=== PATIENT | female | born 2000 | race Caucasian/White ===

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

== ENCOUNTER 2022-01-11 07:59 | Emergency (ER) | payer BC, OTHER ==
--- NOTE | 2022-01-11 08:55 | ERPHSYRPT ---
- History of Present Illness Historian: patient Exam Limitations: no limitations Patient Subjective Stated Complaint: Pt states that she went to work this morning and suddenly had a sharp pain in lower abdomen, started to vomit, turned pale. Pt states she has had several UTI's since the start of her . Triage Nursing Assessment: Pt a&ox4, heart rate is 145, no contractions found at this time. Pt vitals are wnl. Abdomen is non tender, with good movement. Physician History: 21 yo wf 25wks presents w supra-pubic pain which is sharp and rated 4/10 at present. She had some nausea w vomiting x2 this AM. Diarrhe a/fever/dysuria/hematuria/vag bleeding/vag discharge all denied. Good heart tones/no contractions per Ob monitoring. Pt recently treated for UTI. Timing/Duration: other (1hr) Activities at Onset: rest Quality: sharpness Abdominal Pain Onset Location: suprapubic Pain Radiation: no radiation Severity of Pain-Max: mild Severity of Pain-Current: mild Modifying Factors: Improves With: nothing Associated Symptoms: denies symptoms, nausea, vomiting Previous symptoms: no prior history Allergies/Adverse Reactions: No Known Drug Allergies Allergy (Verified 10/25/21 15:16) Home Medications: Albuterol 2.5 mg/3 ml Neb [Proventil 2.5 mg/3 ml Neb] 3 ml IN UD 07/21/12 [History] Vits96/Iron Fum/Folic [ Tablet] 1 tab PO DAILY 10/25/21 [History] Hx Tetanus, Diphtheria Vaccination/Date Given: Yes Hx Influenza Vaccination/Date Given: Yes Hx Pneumococcal Vaccination/Date Given: No Travel Risk - International Travel Have you traveled outside of the country in past 3 weeks: No - Coronavirus Screening Are you exhibiting any of the following symptoms?: No Close contact with a COVID-19 positive Pt in past 14-21 Days: Yes - Vaccine Status Have you recieved a Covid-19 vaccination: No - Review of Systems Constitutional: No Symptoms Eyes: No Symptoms Ears, Nose, & Throat: No Symptoms Respiratory: No Symptoms Cardiac: No Symptoms Abdominal/Gastrointestinal: No Symptoms, Abdominal Pain, Nausea, Vomiting Genitourinary Symptoms: No Symptoms, , No Vaginal Bleeding, No Vaginal Discharge Musculoskeletal: No Symptoms Skin: No Symptoms Neurological: No Symptoms Psychological: No Symptoms Endocrine: No Symptoms Hematologic/Lymphatic: No Symptoms Immunological/Allergic: No Symptoms - Past Medical History Pertinent Past Medical History: Yes Neurological History: No Pertinent History ENT History: No Pertinent History Cardiac History: No Pertinent History Respiratory History: Asthma Endocrine Medical History: No Pertinent History Musculoskeletal History: No Pertinent History GI Medical History: No Pertinent History History: No Pertinent History Psycho-Social History: No Pertinent History Female Reproductive Disorders: No Pertinent History - Past Surgical History Past Surgical History: No Neuro Surgical History: No Pertinent History Cardiac: No Pertinent History Respiratory: No Pertinent History Gastrointestinal: No Pertinent History Genitourinary: No Pertinent History Musculoskeletal: No Pertinent History Female Surgical History: No Pertinent History Other Surgical History: Quad bypass - Social History Smoking Status: Former smoker Exposure to second hand smoke: Yes Drug Use: none Patient Lives Alone: No Significant Family History: no pertinent family hx - Female History Hx Now: Yes Expected Date of Delivery: 04/24/22 Gestational Age: 25+2 - Nursing Vital Signs Nursing Vital Signs: Initial Vital Signs Temperature 98.2 F 01/11/22 07:59 Pulse Rate 113 H 01/11/22 07:59 Respiratory Rate 20 01/11/22 07:59 Blood Pressure 148/74 01/11/22 07:59 O2 Sat by Pulse Oximetry 97 01/11/22 07:59 Pain Scale Pain Intensity 1 Tachy/hypertyensive - Physical Exam General Appearance: no apparent distress Eye Exam: PERRL/EOMI, eyes nml inspection Ears, Nose, Throat Exam: normal ENT inspection, TMs normal, pharynx normal, moist mucous membranes Neck Exam: normal inspection, non-tender, supple, full range of motion, No meningismus, No mass, No Brudzinski, No Kernig's Respiratory Exam: normal breath sounds, lungs clear, airway intact Cardiovascular Exam: tachycardia, capillary refill <2 sec Gastrointestinal/Abdomen Exam: normal bowel sounds, other (/Good BS/NTTP), No tenderness Back Exam: normal inspection, normal range of motion, No CVA tenderness, No vertebral tenderness, No rash Extremity Exam: normal inspection, normal range of motion Neurologic Exam: alert, oriented x 3, cooperative, 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 as tested, normal mood/affect, nml cerebellar function, nml station & gait, sensation nml Skin Exam: normal color, warm, dry, No rash Lymphatic Exam: No adenopathy SpO2 Interpretation: normal SpO2: 97 O2 Delivery: Room Air - Course Nursing assessment & vital signs reviewed: Yes Ordered Tests: Active Orders 24 hr Category Date Time Status CULTURE,URINE Stat Lab 01/11/22 09:58 Received UA W/RFX CULTURE Stat Lab 01/11/22 09:58 Completed Lab/Rad Data: Laboratory Results 01/11/22 Range/Units 09:58 Urinalys Dipstick Clnc MAIN LAB Urine Color YELLOW (YELLOW) Urine Appearance CLEAR (CLEAR) Urine pH 5.5 (5-6) Ur Specific [place] 1.015 (1.005-1.025) POC Urine Protein Conf NEGATIVE (Negative) Urine Ketones NEGATIVE (NEGATIVE) Urine Nitrite NEGATIVE (NEGATIVE) Urine Bilirubin NEGATIVE (NEGATIVE) Urine Urobilinogen 0.2 (0-1) mg/dL Urine Leukocytes MODERATE (NEGATIVE) Urine WBC (Auto) 26-50 (0-5) /HPF Urine RBC (Auto) 6-10 (0-2) /HPF U Epithel Cells (Auto) RARE (FEW) /HPF Urine Bacteria (Auto) RARE (NEGATIVE) /HPF Urine RBC TRACE-INTACT (0-5) Felipe/ul Unidentified Crystals 25-50 (NEGATIVE) /HPF Urine Mucus (Auto) SLIGHT (NEGATIVE) /HPF Urine Yeast (Budding) Rare (NEGATIVE) /HPF Ur Culture Indicated? YES Urine Glucose NEGATIVE (NEGATIVE) mg/dL - Progress Progress: improved Progress Note: 01/11/22 11:35 Pt's pain abated wo treatment Spoke w Dr. Smith, wants to start Macrobid at this time and follow up as an outpt. Since pain is sharp, does not want US at this time No contractions/Good heart rate per Ob staff Counseled pt/family regarding: lab results, diagnosis, need for follow-up - Departure Departure Disposition: Home Clinical Impression: UTI (urinary tract infection) Condition: Stable Critical Care Time: No Referrals: TERESA GARCIA NP [Primary Care Provider] - Follow up/PCP as directed Instructions: Urinary Tract Infections in Additional Instructions: Start Macrobid twice a day Follow up with Dr. Smith If pain returns, becomes cramping, or vaginal bleeding starts go to [facility] or [facility] Prescriptions: Nitrofurantoin Monohyd/M-Cryst [Macrobid 100 mg Capsule] 100 mg PO BID #14
[2022-01-11 10:41] LABS: Bacteria RARE /HPF (NEGATIVE); Crystals Unidentified 25-50 /HPF (NEGATIVE); Epithelial Cells RARE /HPF (FEW); Mucus SLIGHT /HPF (NEGATIVE); WBC 26-50 /HPF (0-5)
[2022-01-11 10:49] LABS: Budding Yeast Rare /HPF (NEGATIVE)
[2022-01-11 10:50] LABS: Appearance CLEAR (CLEAR); Bilirubin NEGATIVE (NEGATIVE); Glucose NEGATIVE (NEGATIVE); Ketones NEGATIVE (NEGATIVE); Nitrite NEGATIVE (NEGATIVE); Ph 5.5 (5-6); Protein,Urine Dip NEGATIVE (Negative); RBC TRACE-INTACT Ery/ul (0-5); Specific Gravity 1.015 (1.005-1.025); Urine Cultured Indicated? YES; Urobilinogen 0.2 mg/dL (0-1)
[2022-01-11 11:18] VITALS: BP 95/42; PULSE 67
[2022-01-11 11:40] VITALS: O2SAT 97
[2022-01-11 13:26] LABS: Dipstick done @ ? MAIN LAB
== END 2022-01-11 11:55 | disposition home or self-care (01) ==
LOC: ED 07:59
DX: O23.42 Unspecified infection of urinary tract in pregnancy, second trimester (principal); N39.0 Urinary tract infection, site not specified; Z3A.25 25 weeks gestation of pregnancy; R10.2 Pelvic and perineal pain; R11.2 Nausea with vomiting, unspecified; Z28.310 Unvaccinated for COVID-19
CPT/HCPCS: 81015; 87086; 99283

== ENCOUNTER 2022-02-23 09:30 | Emergency (ER) | payer BC, OTHER ==
--- NOTE | 2022-02-23 09:32 | ERPHSYRPT ---
- History of Present Illness Time Seen by Provider: 02/23/22 09:32 Source: patient Exam Limitations: no limitations Physician History: This is a 21-year-old white female patient of nurse practitioner Cholo as well as csr Dr. Smith who is by ultrasound that was performed on 02/22/2022 3 weeks and 4 days . She presents with sudden onset of anxiety and panic attack including tearfulness that she could not control. She became stressed at work and then the symptoms followed. She does not have chest pain and she is not short of breath now but during the crying episode she felt a little short of breath. She presents with normal vital signs. She has no abdominal pain. She has had no vomiting or diarrhea. She is not nauseated. She has not been co ughing. She has no known exposures to individuals known to have viral illnesses. She has not had any vaginal bleeding or abnormal vaginal discharge. Timing/Duration: today Severity: moderate (When it began but now it has nearly completely resolved.) Associated Symptoms: denies symptoms Allergies/Adverse Reactions: No Known Drug Allergies Allergy (Verified 10/25/21 15:16) Home Medications: Albuterol 2.5 mg/3 ml Neb [Proventil 2.5 mg/3 ml Neb] 3 ml IN UD 07/21/12 [History] Vits96/Iron Fum/Folic [ Tablet] 1 tab PO DAILY 10/25/21 [History] Hx Tetanus, Diphtheria Vaccination/Date Given: Yes Hx Influenza Vaccination/Date Given: Yes Hx Pneumococcal Vaccination/Date Given: No Travel Risk - International Travel Have you traveled outside of the country in past 3 weeks: No - Coronavirus Screening Are you exhibiting any of the following symptoms?: No Close contact with a COVID-19 positive Pt in past 14-21 Days: No - Vaccine Status Have you recieved a Covid-19 vaccination: No - Review of Systems Constitutional: No Symptoms Eyes: No Symptoms Ears, Nose, & Throat: No Symptoms Respiratory: No Symptoms Cardiac: No Symptoms Abdominal/Gastrointestinal: No Symptoms Genitourinary Symptoms: No Symptoms Musculoskeletal: No Symptoms Skin: No Symptoms Neurological: No Symptoms Psychological: Anxiety Endocrine: No Symptoms Hematologic/Lymphatic: No Symptoms Immunological/Allergic: No Symptoms All Other Systems: Reviewed and Negative - Past Medical History Pertinent Past Medical History: Yes Neurological History: No Pertinent History ENT History: No Pertinent History Cardiac History: No Pertinent History Respiratory History: Asthma Endocrine Medical History: No Pertinent History Musculoskeletal History: No Pertinent History GI Medical History: No Pertinent History History: No Pertinent History Psycho-Social History: No Pertinent History Female Reproductive Disorders: No Pertinent History - Past Surgical History Past Surgical History: No Neuro Surgical History: No Pertinent History Cardiac: No Pertinent History Respiratory: No Pertinent History Gastrointestinal: No Pertinent History Genitourinary: No Pertinent History Musculoskeletal: No Pertinent History Female Surgical History: No Pertinent History Other Surgical History: Quad bypass - Social History Smoking Status: Former smoker Exposure to second hand smoke: Yes Drug Use: none Patient Lives Alone: No Significant Family History: no pertinent family hx - Nursing Vital Signs Nursing Vital Signs: Initial Vital Signs Temperature 98.2 F 02/23/22 09:32 Pulse Rate 98 H 02/23/22 09:32 Respiratory Rate 26 H 02/23/22 09:32 Blood Pressure 136/54 02/23/22 09:32 O2 Sat by Pulse Oximetry 98 02/23/22 09:32 Pain Scale Pain Intensity 3 - Physical Exam General Appearance: no apparent distress, alert, anxiety Eye Exam: PERRL/EOMI (Mild), eyes nml inspection Ears, Nose, Throat Exam: normal ENT inspection, moist mucous membranes Neck Exam: normal inspection, non-tender, supple, full range of motion Respiratory Exam: normal breath sounds, lungs clear, airway intact, No chest tenderness, No respiratory distress Cardiovascular Exam: regular rate/rhythm, normal heart sounds, normal peripheral pulses Gastrointestinal/Abdomen Exam: soft, normal bowel sounds, other ( abdomen), No tenderness Pelvic Exam: not done Rectal Exam: not done Back Exam: normal inspection, normal range of motion, No CVA tenderness, No vertebral tenderness Extremity Exam: normal inspection, normal range of motion, pelvis stable Neurologic Exam: alert, oriented x 3, cooperative, calender tender II-XII nml as tested, normal mood/affect, nml cerebellar function, nml station & gait, sensation nml Skin Exam: normal color, warm, dry Lymphatic Exam: No adenopathy SpO2 Interpretation: normal O2 Delivery: Room Air - Course Nursing assessment & vital signs reviewed: Yes EKG Interpreted by Me: RATE (89), Sinus Rhythm, NORMAL AXIS, NORMAL INTERVALS, NORMAL QRS, NORMAL ST-T, Other (No acute ischemic changes on today's EKG.) Ordered Tests: Active Orders 24 hr Category Date Time Status EKG-ER Only STAT Care 02/23/22 09:40 Active BMP Stat Lab 02/23/22 10:03 Completed CBC W DIFF Stat Lab 02/23/22 10:10 Completed CULTURE,URINE Stat Lab 02/23/22 10:03 Received UA W/RFX CULTURE Stat Lab 02/23/22 10:03 Completed Lab/Rad Data: Laboratory Result Diagrams 02/23/22 10:10 02/23/22 10:03 Laboratory Results 02/23/22 02/23/22 02/23/22 Range/Units 10:10 10:03 10:03 WBC 11.1 H (4.0-10.5) x10^3/uL RBC 4.42 (4.1-5.4) x10^6/uL Hgb 10.0 L (12.0-16.0) g/dL Hct 31.9 L (35-47) % MCV 72.2 L (78-100) fL MCH 22.6 L (26-32) pg MCHC 31.3 L (32-36) g/dL RDW 16.2 H (11.5-14.0) % Plt Count 249 (150-450) x10^3/uL MPV 10.2 (7.5-11.0) fL Gran % 78.2 H (36.0-66.0) % Immature Gran % (Auto) 0.6 H (0.00-0.4) % Nucleat RBC Rel Count 0.0 (0.00-0.1) % Eos # (Auto) 0.30 (0-0.5) x10^3/uL Immature Gran # (Auto) 0.07 H (0.00-0.03) x10^3u/L Absolute Lymphs (auto) 1.44 (1.0-4.6) x10^3/uL Absolute Monos (auto) 0.55 (0.0-1.3) x10^3/uL Absolute Nucleated RBC 0.00 (0.00-0.01) x10^3u/L Lymphocytes % 13.0 L (24.0-44.0) % Monocytes % 5.0 (0.0-12.0) % Eosinophils % 2.7 (0.00-5.0) % Basophils % 0.5 (0.0-0.4) % Absolute Granulocytes 8.68 H (1.4-6.9) x10^3/uL Basophils # 0.05 (0-0.4) x10^3/uL Sodium 135 L (137-145) mmol/L Potassium 3.6 (3.5-5.1) mmol/L Chloride 110 H (98-107) mmol/L Carbon Dioxide 17 L (22-30) mmol/L Anion Gap 11.7 (5-15) MEQ/L BUN 5 L (7-17) mg/dL Creatinine 0.56 (0.52-1.04) mg/dL Estimated GFR > 60.0 ML/MIN Glucose 105 (74-106) mg/dL Calcium 8.8 (8.4-10.2) mg/dL Urinalys Dipstick Clnc MAIN LAB Urine Color DARK YELLOW (YELLOW) Urine Appearance SLIGHTLY CLOUDY (CLEAR) Urine pH 6.5 (5-6) Ur Specific [place] >=1.030 (1.005-1.025) POC Urine Protein Conf 30 (Negative) Urine Ketones TRACE (NEGATIVE) Urine Nitrite NEGATIVE (NEGATIVE) Urine Bilirubin NEGATIVE (NEGATIVE) Urine Urobilinogen 0.2 (0-1) mg/dL Urine Leukocytes SMALL (NEGATIVE) Urine WBC (Auto) 51-100 (0-5) /HPF Urine RBC (Auto) 6-10 (0-2) /HPF U Epithel Cells (Auto) FEW (FEW) /HPF Urine Bacteria (Auto) NONE (NEGATIVE) /HPF Urine RBC NEGATIVE (0-5) Felipe/ul Calcium Oxalate Crystal 11-25 (NEGATIVE) /HPF Urine Mucus (Auto) MODERATE (NEGATIVE) /HPF Ur Culture Indicated? YES Urine Glucose NEGATIVE (NEGATIVE) mg/dL - Progress Progress: improved, re-examined Progress Note: 02/23/22 11:12 Medical decision making: This patient has a urinary tract infection. She also had a panic attack. I spoke with Dr. Smith, the patient's csr. The pl an is to write for Macrobid antibiotic for her to treat her urinary tract infection. In addition I will write for BuSpar 10 mg orally each day. She will follow-up with Dr. Smith in his office. She will call today to make arrangements for follow-up appointment Discussed with : Candelaria Counseled pt/family regarding: lab results, diagnosis, need for follow-up - Departure Departure Disposition: Home Clinical Impression: UTI (urinary tract infection) during , Panic attack as reaction to stress Condition: Stable Critical Care Time: No Referrals: TERESA GARCIA CLINICAL PROJECT MANAGER [Primary Care Provider] - Follow up/PCP as directed Additional Instructions: Drink plenty of fluids. Take your medication as prescribed. Call your csr's office today to make arranges for follow-up appointment for further evaluation and management. Prescriptions: Buspirone HCl 5 mg [Buspar 5 mg] 10 mg PO DAILY #7 tablet Nitrofurantoin Macro 100 mg [Macrobid 100MG Capsule] 100 mg PO BID #10 cap
[2022-02-23 10:20] LABS: Absolute Neutrophil Ct (ANC) 8.68 x10^3/uL (1.4-6.9); Basophil (Absolute #) 0.05 x10^3/uL (0-0.4); Eosinophil % 2.7 % (0.00-5.0); Hematocrit 31.9 % (35-47); Lymphocyte (Absolute #) 1.44 x10^3/uL (1.0-4.6); Mean Cell Volume 72.2 fL (78-100); Mean Corpuscular Hemoglobin 22.6 pg (26-32); Mean Corpuscular Hgb Concent. 31.3 g/dL (32-36); Mean Platelet Volume 10.2 fL (7.5-11.0); Monocyte (Absolute #) 0.55 x10^3/uL (0.0-1.3); Neutrophil % 78.2 % (36.0-66.0); Platelet Count 249 x10^3/uL (150-450); Red Blood Count 4.42 x10^6/uL (4.1-5.4); Red Cell Distribution Width 16.2 % (11.5-14.0); White Blood Count 11.1 x10^3/uL (4.0-10.5)
[2022-02-23 10:25] LABS: ANION GAP 11.7 MEQ/L (5-15); BLOOD UREA NITROGEN 5 mg/dL (7-17); CHLORIDE 110 mmol/L (98-107); Calcium 8.8 mg/dL (8.4-10.2); Carbon Dioxide 17 mmol/L (22-30); Creatinine 1 0.56 mg/dL (0.52-1.04); EST GLOMERULAR FILTRATION RATE > 60.0 ML/MIN; Glucose 105 mg/dL (74-106); Potassium 3.6 mmol/L (3.5-5.1); SODIUM 135 mmol/L (137-145)
[2022-02-23 10:31] LABS: Epithelial Cells FEW /HPF (FEW); Mucus MODERATE /HPF (NEGATIVE); WBC 51-100 /HPF (0-5)
[2022-02-23 10:40] LABS: Appearance SLIGHTLY CLOUDY (CLEAR); Bilirubin NEGATIVE (NEGATIVE); Dipstick done @ ? MAIN LAB; Glucose NEGATIVE (NEGATIVE); Ketones TRACE (NEGATIVE); Nitrite NEGATIVE (NEGATIVE); Ph 6.5 (5-6); Protein,Urine Dip 30 (Negative); RBC NEGATIVE Ery/ul (0-5); Specific Gravity >=1.030 (1.005-1.025); Urobilinogen 0.2 mg/dL (0-1)
[2022-02-23 10:41] LABS: Urine Cultured Indicated? YES
[2022-02-23 11:20] VITALS: BP 115/47; PULSE 83; O2SAT 98
== END 2022-02-23 11:28 | disposition home or self-care (01) ==
LOC: ED 09:30
DX: O23.41 Unspecified infection of urinary tract in pregnancy, first trimester (principal); N39.0 Urinary tract infection, site not specified; O99.341 Other mental disorders complicating pregnancy, first trimester; F43.0 Acute stress reaction; Z3A.01 Less than 8 weeks gestation of pregnancy
CPT/HCPCS: 36415; 80048; 81015; 85025; 87086; 93005; 99283

== ENCOUNTER 2022-03-04 11:44 | Observation (INO) | payer BC, OTHER ==
[2022-03-04 12:13] VITALS: BP 130/63; PULSE 94; O2SAT 97
== END 2022-03-04 14:11 | disposition home or self-care (01) ==
LOC: OB 11:44
PROVIDERS: ADMIT Obstetrics & Gynecology; ATTEND Obstetrics & Gynecology
DX: Z34.03 Encounter for supervision of normal first pregnancy, third trimester (principal); Z3A.32 32 weeks gestation of pregnancy
CPT/HCPCS: 59025; G0378; 99213

== ENCOUNTER 2022-03-07 09:12 | Observation (INO) | payer BC, OTHER ==
[2022-03-07] MEDS ORDERED: Lactated Ringers 1,000 ML IV ONE (09:50)
[2022-03-07 10:13] LABS: Appearance CLEAR (CLEAR); Bilirubin NEGATIVE (NEGATIVE); Dipstick done @ ? MAIN LAB; Glucose NEGATIVE (NEGATIVE); Ketones TRACE (NEGATIVE); Nitrite NEGATIVE (NEGATIVE); Ph 5.5 (5-6); Protein,Urine Dip NEGATIVE (Negative); RBC NEGATIVE Ery/ul (0-5); Specific Gravity 1.025 (1.005-1.025); Urobilinogen 0.2 mg/dL (0-1)
[2022-03-07 10:22] LABS: Bacteria MODERATE /HPF (NEGATIVE); Epithelial Cells FEW /HPF (FEW); Mucus SLIGHT /HPF (NEGATIVE); WBC 51-100 /HPF (0-5)
[2022-03-07 10:32] VITALS: BP 124/61; PULSE 113; O2SAT 97
[2022-03-07 10:41] LABS: Urine Cultured Indicated? YES
[2022-03-07] MEDS ORDERED: Lactated Ringers 1,000 ML IV SCH (11:30)
== END 2022-03-07 11:38 | disposition home or self-care (01) ==
LOC: OB 09:12
PROVIDERS: ADMIT Obstetrics & Gynecology; ATTEND Obstetrics & Gynecology
DX: Z34.03 Encounter for supervision of normal first pregnancy, third trimester (principal); Z3A.33 33 weeks gestation of pregnancy
CPT/HCPCS: 81015; 87086; G0378

== ENCOUNTER 2022-03-16 10:22 | Observation (INO) | payer BC, OTHER ==
[2022-03-16 11:19] VITALS: BP 132/61; PULSE 95; O2SAT 99
[2022-03-16 11:56] LABS: Epithelial Cells RARE /HPF (FEW); Mucus SLIGHT /HPF (NEGATIVE)
[2022-03-16 11:58] LABS: Appearance CLEAR (CLEAR); Bilirubin NEGATIVE (NEGATIVE); Glucose NEGATIVE (NEGATIVE); Ketones NEGATIVE (NEGATIVE); Nitrite NEGATIVE (NEGATIVE); Protein,Urine Dip NEGATIVE (Negative); RBC NEGATIVE Ery/ul (0-5); Specific Gravity 1.025 (1.005-1.025); Urobilinogen 0.2 mg/dL (0-1)
[2022-03-16 11:59] LABS: Urine Cultured Indicated? NO
[2022-03-16 12:03] LABS: Dipstick done @ ? MAIN LAB
[2022-03-16 12:10] LABS: Amphetamine,Urine NEGATIVE (NEGATIVE); Barbiturate,Urine NEGATIVE (NEGATIVE); Benzodiazepine,Urine NEGATIVE (NEGATIVE); Cocaine,Urine NEGATIVE (NEGATIVE); Methadone,Urine NEGATIVE (NEGATIVE); Opiate,Urine NEGATIVE (NEGATIVE); PCP,Urine NEGATIVE (NEGATIVE); THC,Urine NEGATIVE (NEGATIVE)
== END 2022-03-16 12:20 | disposition home or self-care (01) ==
LOC: MED SURG 10:22
PROVIDERS: ADMIT Obstetrics & Gynecology; ATTEND Obstetrics & Gynecology
DX: Z34.03 Encounter for supervision of normal first pregnancy, third trimester (principal); Z3A.34 34 weeks gestation of pregnancy
CPT/HCPCS: 80307; 81015; 99213; G0378

== ENCOUNTER 2022-04-04 22:46 | Observation (INO) | payer BC, OTHER ==
[2022-04-04 23:21] VITALS: BP 133/63; PULSE 82
== END 2022-04-05 00:30 | disposition home or self-care (01) ==
LOC: OB 22:46
PROVIDERS: ADMIT Obstetrics & Gynecology; ATTEND Obstetrics & Gynecology
DX: Z34.03 Encounter for supervision of normal first pregnancy, third trimester (principal); Z3A.37 37 weeks gestation of pregnancy
CPT/HCPCS: G0378

== ENCOUNTER 2022-04-06 06:48 | Inpatient (IN) | payer BC, OTHER ==
[2022-04-06] MEDS ORDERED: XYLOCAINE 1% HCL 20 ML MDV IJ PRN (08:16)
[2022-04-06] MEDS ORDERED: Lactated Ringers 1,000 ML IV ONE ×2 (08:23→11:29)
[2022-04-06] MEDS ORDERED: Ephedrine Sulfate 50 MG/ML IV PRN (08:23)
[2022-04-06] MEDS ORDERED: PITOCIN 30 UNITS/ LR 500 ML 30 UNITS/500 ML PLAST..BAG IV SCH ×2 (08:30)
[2022-04-06] MEDS ORDERED: FENTANYL 2 MCG-BUPIV 0.125%-NS 250 ML Epidur 250 ML EPIDURAL SCH (08:30)
[2022-04-06] MEDS: Lactated Ringers 1,000 ML IV SCH ×2 (08:34→21:15)
[2022-04-06 08:36] LABS: Absolute Neutrophil Ct (ANC) 11.12 x10^3/uL (1.4-6.9); Basophil (Absolute #) 0.05 x10^3/uL (0-0.4); Eosinophil (Absolute #) 0.13 x10^3/uL (0-0.5); Hematocrit 35.7 % (35-47); Hemoglobin 10.6 g/dL (12.0-16.0); Lymphocytes % 9.7 % (24.0-44.0); Mean Cell Volume 73.8 fL (78-100); Mean Corpuscular Hemoglobin 21.9 pg (26-32); Mean Corpuscular Hgb Concent. 29.7 g/dL (32-36); Mean Platelet Volume 10.7 fL (7.5-11.0); Monocytes % 5.2 % (0.0-12.0); Neutrophil % 83.3 % (36.0-66.0); Platelet Count 228 x10^3/uL (150-450); Red Blood Count 4.84 x10^6/uL (4.1-5.4); Red Cell Distribution Width 16.7 % (11.5-14.0); White Blood Count 13.4 x10^3/uL (4.0-10.5)
[2022-04-06 09:47] LABS: ABO TYPING A; RH TYPING NEGATIVE
[2022-04-06 09:48] LABS: Antibody Screen POSITIVE (NEGATIVE)
[2022-04-06] MEDS ORDERED: Reglan 10 MG/2 ML ONE (10:41)
[2022-04-06] MEDS ORDERED: Pepcid 20 MG VIAL IV ONE (10:41)
[2022-04-06] MEDS ORDERED: SUBLIMAZE 100 MCG/2 ML ONE (10:43)
[2022-04-06] MEDS ORDERED: Astramorph-Pf 5 MG/10 ML ONE (11:15)
[2022-04-06] MEDS ORDERED: KEFZOL 1 GM ONE (11:18)
[2022-04-06] MEDS ORDERED: Zofran 4 MG/2 ML VIAL ONE (11:22)
[2022-04-06] MEDS ORDERED: AZITHROMYCIN IV ONE (11:23)
[2022-04-06] MEDS ORDERED: EXPAREL 133 MG/10 ML VIAL IJ ONE (11:23)
[2022-04-06] MEDS ORDERED: SODIUM CHLORIDE IV ONE (11:23)
[2022-04-06] MEDS ORDERED: OFIRMEV 100 ML IV ONE (11:25)
[2022-04-06] MEDS ORDERED: Sensorcaine 0.25% 10 ML ONE (11:25)
--- NOTE | 2022-04-06 11:39 | XRAY ---
Indication: Retained sponge. KUB nonacute and nonobstructed. Osseous structures intact. No radiopaque foreign body.
[2022-04-06] MEDS ORDERED: Pitocin 10 UNITS/ML ONE ×2 (11:56→12:23)
[2022-04-06] MEDS ORDERED: XYLOCAINE 2%/Epi 1:200000 20ML VIAL MPF ONE (12:22)
[2022-04-06] MEDS ORDERED: PHENYLEPHRINE HCL ONE (12:23)
[2022-04-06] MEDS ORDERED: Ephedrine Sulfate 50 MG/ML ONE (12:23)
[2022-04-06] MEDS ORDERED: Mylicon 80MG PO PRN (14:41)
[2022-04-06] MEDS ORDERED: LANSINOH 40 GM TOP PRN (14:41)
[2022-04-06] MEDS ORDERED: CLARITIN 10 MG PO PRN (14:44)
[2022-04-06] MEDS ORDERED: BENADRYL 50 MG/ML IV PRN (14:44)
[2022-04-06] MEDS ORDERED: Zofran 4 MG/2 ML VIAL IV PRN (14:44)
[2022-04-06] MEDS ORDERED: Narcan 0.4 MG/ML IV PRN (14:44)
[2022-04-06] MEDS ORDERED: Nubain 10 MG/ML IV PRN (14:44)
[2022-04-06] MEDS: TYLENOL EXTRA STRENGTH 500 MG PO PRN (16:25)
[2022-04-06] MEDS ORDERED: CEFAZOLIN 2 GM-D5W BAG** 2 GM/50 ML ML IV SCH (20:00)
[2022-04-06] MEDS: Docusate Sodium 100 MG PO SCH (22:20)
[2022-04-06] MEDS ORDERED: Dextrose 5%-Lr IV Solution 1000 ML 1,000 ML IV ONE (23:53)
[2022-04-07 01:23] LABS: Amphetamine,Urine NEGATIVE (NEGATIVE); Barbiturate,Urine NEGATIVE (NEGATIVE); Benzodiazepine,Urine NEGATIVE (NEGATIVE); Cocaine,Urine NEGATIVE (NEGATIVE); Methadone,Urine NEGATIVE (NEGATIVE); Opiate,Urine NEGATIVE (NEGATIVE); PCP,Urine NEGATIVE (NEGATIVE); THC,Urine NEGATIVE (NEGATIVE)
[2022-04-07] MEDS: PERCOCET TABLET 5/325MG PO PRN ×2 (03:37→09:14)
[2022-04-07] MEDS ORDERED: CEFAZOLIN 2 GM-D5W BAG** 2 GM/50 ML ML IV ONE (04:00)
[2022-04-07 06:07] LABS: Absolute Neutrophil Ct (ANC) 11.55 x10^3/uL (1.4-6.9); Basophil (Absolute #) 0.02 x10^3/uL (0-0.4); Eosinophil % 0.4 % (0.00-5.0); Eosinophil (Absolute #) 0.05 x10^3/uL (0-0.5); Hematocrit 27.1 % (35-47); Hemoglobin 8.3 g/dL (12.0-16.0); Lymphocytes % 8.7 % (24.0-44.0); Mean Cell Volume 71.1 fL (78-100); Mean Corpuscular Hemoglobin 21.8 pg (26-32); Mean Corpuscular Hgb Concent. 30.6 g/dL (32-36); Mean Platelet Volume 10.3 fL (7.5-11.0); Monocyte (Absolute #) 0.85 x10^3/uL (0.0-1.3); Monocytes % 6.2 % (0.0-12.0); Neutrophil % 84.1 % (36.0-66.0); Platelet Count 182 x10^3/uL (150-450); Red Blood Count 3.81 x10^6/uL (4.1-5.4); Red Cell Distribution Width 16.6 % (11.5-14.0); White Blood Count 13.7 x10^3/uL (4.0-10.5)
[2022-04-07] MEDS: Dextrose 5%-Lr IV Solution 1000 ML 1,000 ML IV SCH ×2 (06:46)
[2022-04-07] MEDS ORDERED: ENOXAPARIN SODIUM SQ ONE (08:00)
--- NOTE | 2022-04-07 08:16 | PCM.NOTE ---
Date and Time: 04/07/22813 Subjective Assessment: POD 1 SP CSECTION PT RESTING IN BED AND DOING WELL ABLE TO AMBULATE AND TOLERATE DIET. VSS AFEBRILE ABD; SOFT INCISION C/D/INTACT UTERUS; FIRM LOCHIA; MILD A/P SP CSECTON POD 1 DOING WELL STABLE HGB ANTICIPATE DISCHARGE TOMORROW OBJECTIVE DATA Vital Signs: Vital Signs - 24 hr Temp Pulse Resp BP BP BP Pulse Ox 04/07/22 08:00 98.8 F 85 18 126/59 04/07/22 04:00 99.4 F 83 18 109/53 99 04/07/22 00:00 99.5 F 91 H 18 133/59 100 04/06/22 20:00 99.0 F 98 H 18 115/68 100 04/06/22 18:46 98 04/06/22 17:46 100 04/06/22 16:46 99 04/06/22 15:49 100 04/06/22 14:30 72 18 100 04/06/22 14:00 73 18 101/60 100 04/06/22 13:46 99 04/06/22 13:30 73 18 101/60 99 04/06/22 13:15 70 18 102/58 99 04/06/22 13:01 77 18 117/51 99 04/06/22 12:46 87 18 106/51 100 04/06/22 10:48 22 04/06/22 10:45 69 20 94 L 04/06/22 10:33 72 18 101/60 100 04/06/22 10:30 74 20 124/58 100 04/06/22 10:15 65 20 125/59 100 04/06/22 10:00 69 20 125/69 100 04/06/22 09:45 78 20 109/56 100 04/06/22 09:30 70 20 102/48 100 04/06/22 09:15 78 20 126/58 100 04/06/22 09:00 75 20 104/49 98 04/06/22 08:30 73 20 98 04/06/22 08:15 95 H 20 97 Pain Assessment - Last Documented Pain Intensity [Bilateral 2 Lower] Pain Intensity 2 Pain Scale Used FLACC Intake and Output: Intake & Output 04/04/22 04/05/22 04/06/22 04/07/22 11:59 11:59 11:59 11:59 Intake Total 3240 Output Total 6200 Balance -2960 Weight 116.12 kg Lab Results: Lab Results-Last 24 Hours 04/06/22 04/06/22 04/06/22 Range/Units 08:16 08:24 08:24 WBC 13.4 H (4.0-10.5) x10^3/uL RBC 4.84 (4.1-5.4) x10^6/uL Hgb 10.6 L (12.0-16.0) g/dL Hct 35.7 (35-47) % MCV 73.8 L (78-100) fL MCH 21.9 L (26-32) pg MCHC 29.7 L (32-36) g/dL RDW 16.7 H (11.5-14.0) % Plt Count 228 (150-450) x10^3/uL MPV 10.7 (7.5-11.0) fL Gran % 83.3 H (36.0-66.0) % Immature Gran % (Auto) 0.4 (0.00-0.4) % Nucleat RBC Rel Count 0.0 (0.00-0.1) % Eos # (Auto) 0.13 (0-0.5) x10^3/uL Immature Gran # (Auto) 0.06 H (0.00-0.03) x10^3u/L Absolute Lymphs (auto) 1.30 (1.0-4.6) x10^3/uL Absolute Monos (auto) 0.70 (0.0-1.3) x10^3/uL Absolute Nucleated RBC 0.00 (0.00-0.01) x10^3u/L Lymphocytes % 9.7 L (24.0-44.0) % Monocytes % 5.2 (0.0-12.0) % Eosinophils % 1.0 (0.00-5.0) % Basophils % 0.4 (0.0-0.4) % Absolute Granulocytes 11.12 H (1.4-6.9) x10^3/uL Basophils # 0.05 (0-0.4) x10^3/uL Urine Opiates Level NEGATIVE (NEGATIVE) Ur Methadone NEGATIVE (NEGATIVE) Urine Barbiturates NEGATIVE (NEGATIVE) Ur Phencyclidine (PCP) NEGATIVE (NEGATIVE) Urine Amphetamine NEGATIVE (NEGATIVE) U Benzodiazepine Level NEGATIVE (NEGATIVE) Urine Cocaine NEGATIVE (NEGATIVE) Urine Marijuana (THC) NEGATIVE (NEGATIVE) ABO Group A Rh Factor NEGATIVE Antibody Screen POSITIVE (NEGATIVE) 04/07/22 Range/Units 06:00 WBC 13.7 H (4.0-10.5) x10^3/uL RBC 3.81 L (4.1-5.4) x10^6/uL Hgb 8.3 L D (12.0-16.0) g/dL Hct 27.1 L (35-47) % MCV 71.1 L (78-100) fL MCH 21.8 L (26-32) pg MCHC 30.6 L (32-36) g/dL RDW 16.6 H (11.5-14.0) % Plt Count 182 (150-450) x10^3/uL MPV 10.3 (7.5-11.0) fL Gran % 84.1 H (36.0-66.0) % Immature Gran % (Auto) 0.5 H (0.00-0.4) % Nucleat RBC Rel Count 0.0 (0.00-0.1) % Eos # (Auto) 0.05 (0-0.5) x10^3/uL Immature Gran # (Auto) 0.07 H (0.00-0.03) x10^3u/L Absolute Lymphs (auto) 1.20 (1.0-4.6) x10^3/uL Absolute Monos (auto) 0.85 (0.0-1.3) x10^3/uL Absolute Nucleated RBC 0.00 (0.00-0.01) x10^3u/L Lymphocytes % 8.7 L (24.0-44.0) % Monocytes % 6.2 (0.0-12.0) % Eosinophils % 0.4 (0.00-5.0) % Basophils % 0.1 (0.0-0.4) % Absolute Granulocytes 11.55 H (1.4-6.9) x10^3/uL Basophils # 0.02 (0-0.4) x10^3/uL Urine Opiates Level (NEGATIVE) Ur Methadone (NEGATIVE) Urine Barbiturates (NEGATIVE) Ur Phencyclidine (PCP) (NEGATIVE) Urine Amphetamine (NEGATIVE) U Benzodiazepine Level (NEGATIVE) Urine Cocaine (NEGATIVE) Urine Marijuana (THC) (NEGATIVE) ABO Group Rh Factor Antibody Screen (NEGATIVE) Radiology Exams: Radiology Procedures Category Date Time Status KUB Routine Exams 04/06/22 11:07 Completed Assessment/Plan (1) S/P primary low transverse Current Visit: Yes Status: Acute Code(s): Z98.891 - HISTORY OF UTERINE SCAR FROM PREVIOUS SURGERY (2) Postoperative anemia due to acute blood loss Current Visit: Yes Status: Acute Code(s): D62 - ACUTE POSTHEMORRHAGIC ANEMIA
[2022-04-07] MEDS: Docusate Sodium 100 MG PO SCH (09:14)
[2022-04-07] MEDS ORDERED: Rhogam Plus 300 MCG IM ONE (10:00)
[2022-04-07] MEDS ORDERED: Adacel Vial IM ONE (10:00)
[2022-04-07] MEDS: FERREX 150 PO SCH (10:31)
[2022-04-07] MEDS: TYLENOL EXTRA STRENGTH 500 MG PO PRN (12:57)
[2022-04-07 16:44] LABS: HBsAg Screen Negative (Negative)
[2022-04-07] MEDS: MOTRIN 400 MG PO PRN (18:52)
[2022-04-07] MEDS: NORCO 5/325 MG PO PRN (20:50)
[2022-04-08] MEDS: NORCO 5/325 MG PO PRN (03:29)
[2022-04-08] MEDS: Docusate Sodium 100 MG PO SCH ×2 (03:30→10:20)
[2022-04-08 04:55] VITALS: O2SAT 99
[2022-04-08] MEDS: MOTRIN 400 MG PO PRN (04:55)
[2022-04-08 09:34] VITALS: BP 123/60; PULSE 101
--- NOTE | 2022-04-08 09:46 | PCM.NOTE ---
Date and Time: 04/08/22943 Subjective Assessment: pod 2 sp csection pt resting in bed and doing well able to ambulate and tolerate diet. vss afebrile abd; soft incision c/d/intact uterus; firm lochia; mild a/p sp csection pod 2 postop anemia advised to take iron supplementation dc home today fu office 2 wks OBJECTIVE DATA Vital Signs: Vital Signs - 24 hr Temp Pulse Resp BP Pulse Ox 04/08/22 09:28 97.8 F 101 H 18 123/60 04/08/22 04:54 97.9 F 97 H 20 113/51 99 04/07/22 20:00 99.6 F 96 H 18 117/55 98 04/07/22 14:00 98.6 F 83 18 102/54 Pain Assessment - Last Documented Pain Intensity [Bilateral 6 Lower] Pain Intensity 3 Pain Scale Used 0-10 Pain Scale Intake and Output: Intake & Output 04/05/22 04/06/22 04/07/22 04/08/22 11:59 11:59 11:59 11:59 Intake Total 3640 1100 Output Total 6200 Balance -2560 1100 Weight 116.12 kg Lab Results: Lab Results-Last 24 Hours 04/06/22 Range/Units 08:24 Hep Bs Antigen Negative (Negative) Radiology Exams: Radiology Procedures Category Date Time Status KUB Routine Exams 04/06/22 11:07 Completed Assessment/Plan (1) S/P primary low transverse Current Visit: Yes Status: Acute Code(s): Z98.891 - HISTORY OF UTERINE SCAR FROM PREVIOUS SURGERY (2) Postoperative anemia due to acute blood loss Current Visit: Yes Status: Acute Code(s): D62 - ACUTE POSTHEMORRHAGIC ANEMIA
--- NOTE | 2022-04-08 09:50 | PCM.DS ---
Discharge Summary Date of Admission: 04/06/22 08:19 Admitting Physician: LEIF DUNAWAY DO Consults: Consults on Case 04/06/22 08:23 Notify Anesthesia Provider PRN 04/06/22 14:45 Notify Anesthesia Provider PRAda Primary Care Provider: TERESA GARCIA Allergies Allergies No Known Drug Allergies Allergy (Verified 04/04/22 23:21) Hospital Summary - Hospital Course Hospital Course: pt admitted on april 06 for srom and was in labor however during the course of labor was noted having nonreasurring heart rate tracing with repetitive variable decelerations and subsequently underwent primary csection. during postop period did well with stable hgb at 8 and prior hgb 10. pt able to ambulate and tolerate diet. doing well incision c/d/intact. pt advised now to fu in office in 2 wks for postop evaluation. all questions answered to her satisfaction. pt advised to take ibuprofen and tylenol for pain management. - Vitals & Intake/Output Vital Signs: Vital Signs Temperature 97.8 F 04/08/22 09:28 Pulse Rate 101 H 04/08/22 09:28 Respiratory Rate 18 04/08/22 09:28 Blood Pressure 123/60 04/08/22 09:28 O2 Sat by Pulse Oximetry 99 04/08/22 04:54 Intake & Output: Intake & Output 04/05/22 04/06/22 04/07/22 04/08/22 11:59 11:59 11:59 11:59 Intake Total 3640 1100 Output Total 6200 Balance -2560 1100 Weight 116.12 kg - Lab Result Diagrams: 04/07/22 06:00 Lab Results-Last 24 Hrs: Lab Results-Last 24 Hours 04/06/22 Range/Units 08:24 Hep Bs Antigen Negative (Negative) - Radiology Exams Ordered Rad Exams-Entire Visit: Radiology Procedures Category Date Time Status KUB Routine Exams 04/06/22 11:07 Completed - Procedures and Test Procedures and Tests throughout Hospitalization: Therapy Orders & Screens 04/06/22 13:24 Smoking Cessation Education ONCE Comment: Diagnosis: Contractions Smoking Status: Current every day smoker Have you smoked in the past 12 months: No Do you dip or chew tobacco: No If,Former Smoker,when did you quit: June 2021 Final Diagnosis/Problem List - Final Discharge Diagnosis/Problem (1) S/P primary low transverse Current Visit: Yes Status: Acute Code(s): Z98.891 - HISTORY OF UTERINE SCAR FROM PREVIOUS SURGERY (2) Postoperative anemia due to acute blood loss Current Visit: Yes Status: Acute Code(s): D62 - ACUTE POSTHEMORRHAGIC ANEMIA - Discharge Disposition: Home, Self-Care Condition: Stable Prescriptions: No Action Albuterol 2.5 mg/3 ml Neb [Proventil 2.5 mg/3 ml Neb] 3 ml IN UD Vits96/Iron Fum/Folic [ Tablet] 1 tab PO DAILY Follow up with: TERESA GARCIA NP [Primary Care Provider] - LEIF DUNAWAY DO [ACTIVE STAFF] - 2 weeks (should keep incision clean and dry )
[2022-04-08] MEDS: TYLENOL EXTRA STRENGTH 500 MG PO PRN (10:20)
[2022-04-08] MEDS: FERREX 150 PO SCH (10:20)
--- NOTE | 2022-04-09 10:44 | OP ---
SURGERY DATE/TIME: 04/06/2022 1027 PREOPERATIVE DIAGNOSIS: Intrauterine at 37 weeks and 3 days gestation with nonreassuring heartrate tracing with repetitive variable decelerations remote from delivery. POSTOPERATIVE DIAGNOSIS: Intrauterine at 37 weeks and 3 days gestation with nonreassuring heartrate tracing with repetitive variable decelerations remote from delivery. PROCEDURE: Primary section, low flap transverse uterine incision, Pfannenstiel skin incision. SURGEON: Yakov Smith D.O. CONTINUING EDUCATION DIRECTOR: Francisco Dudley, transportation engineering technician. ANESTHESIA: Epidural. ESTIMATED BLOOD LOSS: 626 cc. COMPLICATIONS: None. INDICATIONS: The risks, benefits, indications and alternatives of the procedure were reviewed with the patient prior to procedure. The patient understood the risk of infection, bleeding, bowel injury, bladder injury, ureteral injury, uterine perforation, pelvic infection and thromboembolic disorder associated with the surgery however desires to have this surgery as a possible means to alleviate her current medical condition. DESCRIPTION OF PROCEDURE AND FINDINGS: At this point she is taken to the operating room in urgent situation where her epidural anesthesia had been found to be adequate. She was then prepared and draped in normal sterile fashion in the dorsal supine position with a leftward tilt. A Pfannenstiel skin incision is made with a scalpel and carried through to the underlying layer of the fascia with a Bovie. The fascia was then incised in the midline and the incision extended laterally with Kirby scissors. The superior aspect of the fascial incision was then grasped Edward clamps elevated and the underlying rectus muscles dissected off bluntly. Attention is then turned to the inferior aspect of this incision which in similar fashion was grasped, tented up with Edward clamps and the rectus muscles dissected off bluntly. The rectus muscles were then at the midline and the peritoneum identified, tented up and entered sharply with Metzenbaum scissors. The peritoneal incision was then extended superiorly and inferiorly with good visualization of the bladder. The bladder blade was then inserted and the vesicouterine peritoneum identified, grasped with pickups and entered sharply with Metzenbaum scissors. This incision was then extended laterally and bladder flap created digitally. The bladder blade was then reinserted and the lower uterine segment incised in transverse fashion with a scalpel. The uterine incision was then extended laterally with bandage scissors. At this point the bladder blade was removed and the infant's head was delivered atraumatically, noted to have nuchal cord x2 which was reduced. The nose and mouth were suctioned with bulb suction and the cord clamped and cut. The was handed off to awaiting nurses. The placenta was then removed manually. The uterus exteriorized and cleared of all clots and debris. The uterine incision was repaired with 1-0 chromic in a running locked fashion. A second layer of the same suture was used to obtain excellent hemostasis. The uterus is then returned to the abdomen. The gutters were cleared of clots and the peritoneal muscle closed in interrupted fashion using 2-0 chromic suture. The fascia was re-approximated with 0 Vicryl in running fashion. The subcutaneous layer was closed with 3-0 Vicryl suture and the skin was closed with absorbable stephy called INSORB. The patient tolerated the procedure well. Sponge, lap, needle and instrument counts were correct x2. The patient was then taken to the recovery room in stable condition. The patient delivered a live baby boy at 1054 hours, weight of the baby was 5 pounds 10 ounces and 's were 9 at 1 minute and 9 at 5 minutes.
== END 2022-04-08 10:49 | disposition home or self-care (01) | DRG 787 ==
LOC: OBSVTOIN 06:48 → UNDOADMOB 06:48 → INTOOBSV 06:48 → OB 06:48 → OBSVTOIN 08:19 → OB 08:19
PROVIDERS: ADMIT Obstetrics & Gynecology; ATTEND Obstetrics & Gynecology
PROC: 10D00Z1 Extraction of Products of Conception, Low, Open Approach (ICD-10-PCS; principal; 2022-04-06)
DX: O36.8330 Maternal care for abnormalities of the fetal heart rate or rhythm, third trimester, not applicable or unspecified (principal); D62 Acute posthemorrhagic anemia; Z3A.37 37 weeks gestation of pregnancy; Z37.0 Single live birth; Z20.828 Contact with and (suspected) exposure to other viral communicable diseases
CPT/HCPCS: 36415; 59510; 62322; 64488; 74018; 76937; 76942; 80307; 84112; 85025; 85461; 86850; 86870; 86900; 86901; 87340; 90715; 96372; 99140; J0456; J0690; J1200; J1650; J2274; J2300; J2370; J2405; J2590; J2790; J3010; L0625; A9270-GY

== ENCOUNTER 2023-08-18 11:54 | Emergency (ER) | payer BC, MEDICAID ==
[2023-08-18 12:08] VITALS: BP 126/49; TEMP 97.6; O2SAT 97
--- NOTE | 2023-08-18 12:20 | ERPHSYRPT ---
- History of Present Illness Time Seen by Provider: 08/18/23 12:10 Source: patient Exam Limitations: no limitations Patient Subjective Stated Complaint: pt here for possible urinary tract infection, painful urination, frequent urination. no fever Triage Nursing Assessment: pt alert, resp easy, skin w/d/p. moves all ext well, no edema noted, Physician History: Patient is a 23-year-old white female who has a history of urinary tract infections while . Who presents with a complaint of feeling bad for several days. She has been taking Azo and drinking cranberry juice etc. and not getting any better. She has had dysuria frequency urgency and voiding small amounts. Timing/Duration: day(s) (3) Quality: burning, stabbing Onset Location: suprapubic, right flank, left flank Severity of Pain-Max: mild Severity of Pain-Current: mild Modifying Factors: Improves With: nothing Associated Symptoms: dysuria, polyuria, urinary frequency, No fever, No chills Allergies/Adverse Reactions: No Known Drug Allergies Allergy (Verified 04/04/22 23:21) Home Medications: Phentermine HCl [Adipex-P] 37.5 mg PO DAILY 08/18/23 [History] Hx Tetanus, Diphtheria Vaccination/Date Given: Yes Hx Influenza Vaccination/Date Given: No Hx Pneumococcal Vaccination/Date Given: No Travel Risk - International Travel Have you traveled outside of the country in past 3 weeks: No - Coronavirus Screening Are you exhibiting any of the following symptoms?: No Close contact with a COVID-19 positive Pt in past 14-21 Days: No - Vaccine Status Have you recieved a Covid-19 vaccination: No - Review of Systems Constitutional: No Fever, No Chills Eyes: No Symptoms Ears, Nose, & Throat: No Symptoms Respiratory: No Cough, No Dyspnea Cardiac: No Chest Pain, No Edema, No Syncope Abdominal/Gastrointestinal: No Abdominal Pain, No Nausea, No Vomiting, No Diarrhea Genitourinary Symptoms: Dysuria, Frequency, Urgency, Flank Pain Musculoskeletal: No Back Pain, No Neck Pain Skin: No Rash Neurological: No Dizziness, No Focal Weakness, No Sensory Changes Psychological: No Symptoms Endocrine: No Symptoms All Other Systems: Reviewed and Negative - Past Medical History Pertinent Past Medical History: Yes Neurological History: No Pertinent History ENT History: No Pertinent History Cardiac History: No Pertinent History Respiratory History: Asthma Endocrine Medical History: No Pertinent History Musculoskeletal History: No Pertinent History GI Medical History: No Pertinent History History: No Pertinent History Psycho-Social History: No Pertinent History Female Reproductive Disorders: No Pertinent History - Past Surgical History Past Surgical History: No Neuro Surgical History: No Pertinent History Cardiac: No Pertinent History Respiratory: No Pertinent History Gastrointestinal: No Pertinent History Genitourinary: No Pertinent History Musculoskeletal: No Pertinent History Female Surgical History: No Pertinent History Other Surgical History: Quad bypass - Social History Smoking Status: Current every day smoker Exposure to second hand smoke: No Drug Use: none Patient Lives Alone: Yes Significant Family History: no pertinent family hx - Female History Hx Last Menstrual Period: jun Hx Now: No - Nursing Vital Signs Nursing Vital Signs: Initial Vital Signs Temperature 97.6 F 08/18/23 12:06 Pulse Rate 114 H 08/18/23 12:06 Respiratory Rate 16 08/18/23 12:06 Blood Pressure 126/49 08/18/23 12:06 O2 Sat by Pulse Oximetry 97 08/18/23 12:06 Pain Scale Pain Intensity 8 - Physical Exam General Appearance: no apparent distress, alert Eye Exam: PERRL/EOMI, eyes nml inspection Ears, Nose, Throat Exam: normal ENT inspection, TMs normal, pharynx normal, moist mucous membranes Neck Exam: normal inspection, non-tender, supple, full range of motion Respiratory Exam: normal breath sounds, lungs clear, No respiratory distress Cardiovascular Exam: regular rate/rhythm, normal heart sounds, normal peripheral pulses Gastrointestinal/Abdomen Exam: soft, No tenderness, No mass Back Exam: normal inspection, normal range of motion, No CVA tenderness, No vertebral tenderness Extremity Exam: normal inspection, normal range of motion, pelvis stable Neurologic Exam: alert, oriented x 3, cooperative, 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, normal mood/affect, sensation nml, No motor deficits Skin Exam: normal color, warm, dry Lymphatic Exam: No adenopathy SpO2: 97 Ordered Tests: Active Orders 24 hr Category Date Time Status CULTURE,URINE Stat Lab 08/18/23 12:06 Received UA W/RFX UR CULTURE Stat Lab 08/18/23 12:06 Completed Medication Summary Generic Name Dose Route Start Last Admin Trade Name Freq PRN Reason Stop Dose Admin Ceftriaxone Sodium/Dextrose 1 g in 50 mls @ 100 mls/hr 08/18/23 12:35 Rocephin 1 Gm-D5w 50 Ml Bag IV 08/18/23 13:04 STAT STA Lab/Rad Data: Laboratory Results 08/18/23 Range/Units 12:06 Urine Color [place] A (Yellow) Urine Appearance Turbid A (Clear) Urine pH 5.0 (4.6-8.0) Ur Specific [place] 1.020 (1.005-1.030) Urine Protein 100 A (Negative) Urine Glucose (UA) Negative (Negative) mg/dL Urine Ketones Negative (Negative) Urine Blood Moderate A (Negative) Urine Nitrite Positive A (Negative) Urine Bilirubin Moderate A (Negative) Urine Urobilinogen 1.0 A (0.2) mg/dL Ur Leukocyte Esterase Moderate A (Negative) U Hyaline Cast (Auto) NONE SEEN (0-2) /LPF Urine Microscopic RBC 6-10 A (0-5) /HPF Urine Microscopic WBC 21-50 A (0-5) /HPF Ur Epithelial Cells Moderate A (None Seen) /HPF Urine Bacteria Few A (None Seen) /HPF Urine Culture Reflexed YES (NO) - Progress Progress: unchanged Air Movement: good Blood Culture(s) Obtained: No Antibiotics given: Yes Medical Desision Making - Independent Historian Additional History obtained from: Spouse - Diagnostic Testing Diagnostic test were ordered, analyzed, and reviewed by me: Yes - Risk of complications Minimal Risk: Minimal risk of morbidity - Departure Departure Disposition: Home Clinical Impression: Urinary tract infection Condition: Stable Critical Care Time: No Referrals: TERESA GARCIA NP [Primary Care Provider] - Follow up/PCP as directed Instructions: Urinary Tract Infection, Adult (DC) Prescriptions: Cephalexin Mh 500 mg [Keflex 500 mg] 500 mg PO QID #40 cap
[2023-08-18 12:29] LABS: Appearance Turbid (Clear); Bacteria Few /HPF (None Seen); Bilirubin Moderate (Negative); Blood Moderate (Negative); Glucose, Urine Negative (Negative); Hyaline Casts NONE SEEN /LPF (0-2); Ketones Negative (Negative); Leukocyte Esterase Moderate (Negative); Nitrite Positive (Negative); Protein,Urine Dip 100 (Negative); WBC 21-50 /HPF (0-5)
[2023-08-18 12:30] LABS: ADD URINE CULTURE? YES (NO); Epithelial Cells Moderate /HPF (None Seen)
[2023-08-18] MEDS ORDERED: ROCEPHIN 1 Gm-D5w 50 ml Bag** 1 G/50 ML IVPB IV STA (12:35)
[2023-08-18] MEDS ORDERED: ROCEPHIN 1 Gm-D5w 50 ml Bag** 1 G/50 ML IVPB IV ONE (12:50)
[2023-08-18 13:21] VITALS: PULSE 96; RESP 20
== END 2023-08-18 13:26 | disposition home or self-care (01) ==
LOC: ED 11:54
DX: N39.0 Urinary tract infection, site not specified (principal); R30.0 Dysuria; R35.0 Frequency of micturition; Z79.899 Other long term (current) drug therapy; Z28.310 Unvaccinated for COVID-19; Z72.0 Tobacco use
CPT/HCPCS: 81001; 87077; 87086; 87186; 96365; 99283; J0696